=== PATIENT | male | born 1950 | race Caucasian/White ===

== ENCOUNTER 2018-06-21 02:07 | Inpatient (IN) | payer OTHER ==
[~2018-06-21] VITALS: Ht 172.7 cm; Wt 72.7 kg
[2018-06-21 04:04] LABS: Basophils # (auto) 0.1 uL; Basophils % (auto) 0.7 % (0.0-2.0); Eosinophils # (auto) 0.1 uL; Eosinophils % (auto) 1.6 % (0.0-7.0); Hematocrit 41.3 % (41.0-53.0); Hemoglobin 14.8 g/dL (13.5-17.5); Lymphocytes # (auto) 1.8 uL; Lymphocytes % (auto) 19.9 % (10.0-50.0); Mean Corpuscular Hemoglobin 33.9 pg (28.0-32.0); Mean Corpuscular Hgb Conc. 35.7 g/dL (32.0-36.0); Mean Corpuscular Volume 94.7 fL (80.0-100.0); Monocytes # (auto) 0.7 uL; Monocytes % (auto) 8.1 % (0.0-12.0); Neutrophils # (auto) 6.2 uL; Neutrophils % (auto) 69.7 % (37.0-80.0); Nucleated Red Blood Cells % 0.1 %; Platelet Count (auto) 219 10^3/uL (140-450); Red Blood Cells 4.36 10^6/uL (4.5-5.90); Red Cell Distribution Width 13.4 % (11.8-14.3); White Blood Cell 8.8 10^3/uL (4.4-10.8)
[2018-06-21 04:17] LABS: Urine Bacteria NONE SEEN /hpf (None Seen); Urine Blood TRACE /uL (Negative); Urine Specific Gravity 1.011 (1.001-1.035); Urine WBC 1 /hpf (0 - 3)
[2018-06-21 04:23] LABS: Albumin 3.3 g/dL (3.4-5.0); Anion Gap 9 (5-15); Blood Alcohol < 3.0 mg/dL (0-5); Blood Urea Nitrogen 19 mg/dL (7-18); Calcium 8.6 mg/dL (8.5-10.1); Carbon Dioxide 29 mmol/L (21-32); Chloride 92 mmol/L (98-107); Glucose 75 mg/dL (74-106); Potassium 3.6 mmol/L (3.5-5.1); Sodium 130 mmol/L (136-145)
[2018-06-21 04:29] LABS: Alanine Aminotransferase 31 U/L (16-61); Alkaline Phosphatase 133 U/L (45-117); Aspartate Aminotransferase 31 U/L (15-37); BUN/Creatinine Ratio 22.6; Bilirubin, Total 0.5 mg/dL (0.2-1.0); GFR African American 117 mL/min; GFR Non-African American 97 mL/min; Total Protein 7.1 g/dL (6.4-8.2)
[2018-06-21 04:35] LABS: Amphetamine Screen, Urine NEGATIVE (NEGATIVE); Barbiturate Scree,Urine NEGATIVE (NEGATIVE); Benzodiazephine Screen, Urine NEGATIVE (NEGATIVE); Cannabinoid Screen, Urine NEGATIVE (NEGATIVE); Cocaine Screen, Urine NEGATIVE (NEGATIVE); Opiate Scree,Urine NEGATIVE (NEGATIVE); Phencyclidine Screen, Urine NEGATIVE (NEGATIVE)
[2018-06-21] MEDS ORDERED: ONDANSETRON HCL 4 MG/2 ML VIAL IV PRN (08:30)
[2018-06-21] MEDS ORDERED: HYDROcodone-ACET 5/325MG TAB PO PRN (08:30)
[2018-06-21] MEDS ORDERED: ACETAMINOPHEN 500 MG TAB PO PRN (08:30)
[2018-06-21] MEDS ORDERED: MORPHINE SULFATE 4 MG/ML SYR/VIAL IV PRN (08:30)
[2018-06-21] MEDS ORDERED: LACTULOSE 20Gm/30ML SOLN PO PRN (08:30)
[2018-06-21] MEDS ORDERED: LORazepam 0.5 MG TAB PO PRN (08:30)
[2018-06-21] MEDS ORDERED: NITROGLYCERIN 0.4 MG SL TAB SL PRN (08:30)
[2018-06-21] MEDS: SODIUM CHLORIDE 0.9% 1,000 ML IV SCH ×2 (08:35→20:59)
[2018-06-21 10:00] VITALS: BP 158/63
[2018-06-21] MEDS: ENOXAPARIN SOD 40 MG/0.4 ML SYRINGE SC SCH (10:00)
[2018-06-21 10:09] LABS: Folate (Folic Acid) 16.91 ng/mL (5.38-24)
[2018-06-21] MEDS: PANTOPRAZOLE 40 MG TAB PO SCH (11:10)
[2018-06-21] MEDS: ASPirin 81 mg TAB PO SCH (11:13)
[2018-06-21 17:00] VITALS: BP 135/69
[2018-06-21] MEDS: MORPHINE SULFATE 4 MG/ML SYR/VIAL IV PRN (19:53)
[2018-06-21] MEDS: LORazepam 2MG/ML-1ML VIAL IV PRN (21:53)
[2018-06-21] MEDS: ATORVASTATIN 20 MG TAB PO SCH (21:54)
[2018-06-21 22:08] VITALS: BP 143/62
[2018-06-22 04:58] VITALS: BP 163/62
[2018-06-22 06:47] LABS: Albumin 2.7 g/dL (3.4-5.0); Potassium 3.9 mmol/L (3.5-5.1)
[2018-06-22 06:50] LABS: BUN/Creatinine Ratio 25.6; Bilirubin, Total 0.5 mg/dL (0.2-1.0); Total Protein 5.4 g/dL (6.4-8.2)
[2018-06-22] MEDS: SODIUM CHLORIDE 0.9% 1,000 ML IV SCH ×2 (07:45→21:02)
[2018-06-22 09:00] VITALS: BP 164/73
[2018-06-22] MEDS: ASPirin 81 mg TAB PO SCH (10:42)
[2018-06-22] MEDS: PANTOPRAZOLE 40 MG TAB PO SCH (10:42)
[2018-06-22] MEDS: LABETALOL HCL 5 MG/ML ML 20ML VIAL IV PRN ×2 (10:42→21:21)
[2018-06-22] MEDS: ENOXAPARIN SOD 40 MG/0.4 ML SYRINGE SC SCH (10:43)
[2018-06-22] MEDS: LORazepam 2MG/ML-1ML VIAL IV PRN (17:04)
[2018-06-22 17:57] VITALS: BP 112/73
[2018-06-22] MEDS: ATORVASTATIN 20 MG TAB PO SCH (20:57)
[2018-06-22] MEDS: DONEPEZIL HYDROCHLORIDE 5 MG TAB PO SCH (20:57)
[2018-06-22 21:00] VITALS: BP 179/63
[2018-06-22] MEDS: TEMAZEPAM 15 MG CAP PO PRN (21:01)
[2018-06-23] MEDS: LORazepam 2MG/ML-1ML VIAL IV PRN ×2 (00:49→17:31)
[2018-06-23] MEDS: ATORVASTATIN 20 MG TAB PO SCH ×2 (06:28→21:53)
[2018-06-23] MEDS: LABETALOL HCL 5 MG/ML ML 20ML VIAL IV PRN ×2 (06:53→22:16)
[2018-06-23 08:00] VITALS: BP 153/76
[2018-06-23 09:00] VITALS: BP 153/72
[2018-06-23] MEDS: SODIUM CHLORIDE 0.9% 1,000 ML IV SCH ×2 (10:29→22:18)
[2018-06-23] MEDS: ENOXAPARIN SOD 40 MG/0.4 ML SYRINGE SC SCH (11:21)
[2018-06-23] MEDS: ASPirin 81 mg TAB PO SCH (11:21)
[2018-06-23] MEDS: CLOPIDOGREL BISULFATE 75 MG TAB PO SCH (11:21)
[2018-06-23] MEDS: PANTOPRAZOLE 40 MG TAB PO SCH (11:21)
[2018-06-23] MEDS ORDERED: DEXTROSE (50%) 50ML SYRG IV PRN (12:00)
[2018-06-23] MEDS: ACCU-CHEK COMFORT CURVE STRIP VI SCH ×3 (12:48→22:17)
[2018-06-23] MEDS: InsuLIN REG 1unit/0.01ml Soln (100units/ml) SC SCH ×3 (12:48→22:18)
[2018-06-23 13:00] VITALS: BP 97/60
[2018-06-23 17:00] VITALS: BP 146/74
[2018-06-23] MEDS: TEMAZEPAM 15 MG CAP PO PRN (21:53)
[2018-06-23] MEDS: DONEPEZIL HYDROCHLORIDE 5 MG TAB PO SCH (21:54)
[2018-06-23 22:00] VITALS: BP 193/81
[2018-06-24] VITALS (8 sets, daily range): BP systolic 134–162; BP diastolic 63–82
[2018-06-24] MEDS: InsuLIN REG 1unit/0.01ml Soln (100units/ml) SC SCH ×4 (05:45→22:00)
[2018-06-24] MEDS: ACCU-CHEK COMFORT CURVE STRIP VI SCH ×4 (05:45→22:00)
[2018-06-24] MEDS: LABETALOL HCL 5 MG/ML ML 20ML VIAL IV PRN (06:05)
[2018-06-24] MEDS: HALOPERIDOL LACTATE 5 MG/ML INJ VIAL IM PRN ×2 (08:16→18:05)
[2018-06-24 10:08] LABS: BUN/Creatinine Ratio 23.6; Calcium 8.4 mg/dL (8.5-10.1); Potassium 4.5 mmol/L (3.5-5.1)
[2018-06-24] MEDS: SODIUM CHLORIDE 0.9% 1,000 ML IV SCH ×2 (11:29→23:59)
[2018-06-24] MEDS: PANTOPRAZOLE 40 MG TAB PO SCH (11:36)
[2018-06-24] MEDS: ENOXAPARIN SOD 40 MG/0.4 ML SYRINGE SC SCH (11:37)
[2018-06-24] MEDS: ASPirin 81 mg TAB PO SCH (11:37)
[2018-06-24] MEDS: CLOPIDOGREL BISULFATE 75 MG TAB PO SCH (11:37)
[2018-06-24 13:48] LABS: Basophils # (auto) 0.1 uL; Basophils % (auto) 0.9 % (0.0-2.0); Eosinophils # (auto) 0.1 uL; Eosinophils % (auto) 1.6 % (0.0-7.0); Lymphocytes # (auto) 0.9 uL; Monocytes # (auto) 0.5 uL
[2018-06-24 13:50] LABS: Hematocrit 36.9 % (41.0-53.0); Hemoglobin 12.9 g/dL (13.5-17.5); Lymphocytes % (auto) 12.9 % (10.0-50.0); Mean Corpuscular Hemoglobin 33.8 pg (28.0-32.0); Mean Corpuscular Volume 96.5 fL (80.0-100.0); Monocytes % (auto) 7.1 % (0.0-12.0); Neutrophils # (auto) 5.1 uL; Neutrophils % (auto) 77.5 % (37.0-80.0); Platelet Count (auto) 201 10^3/uL (140-450); Red Blood Cells 3.82 10^6/uL (4.5-5.90); Red Cell Distribution Width 13.4 % (11.8-14.3); White Blood Cell 6.6 10^3/uL (4.4-10.8)
[2018-06-24] MEDS: LORazepam 2MG/ML-1ML VIAL IV PRN ×2 (13:59→20:05)
[2018-06-24] MEDS ORDERED: METOPROLOL TARTRATE 25 MG TAB PO ONE (17:00)
[2018-06-24] MEDS: MORPHINE SULFATE 4 MG/ML SYR/VIAL IV PRN (21:09)
[2018-06-24] MEDS ORDERED: ATORVASTATIN 20 MG TAB PO SCH (22:00)
[2018-06-24] MEDS: DONEPEZIL HYDROCHLORIDE 5 MG TAB PO SCH (22:51)
[2018-06-25] MEDS: HALOPERIDOL LACTATE 5 MG/ML INJ VIAL IM PRN (02:18)
[2018-06-25 05:00] VITALS: BP 138/57
[2018-06-25] MEDS: LORazepam 2MG/ML-1ML VIAL IV PRN (06:31)
[2018-06-25] MEDS: ACCU-CHEK COMFORT CURVE STRIP VI SCH ×2 (06:31→12:45)
[2018-06-25] MEDS: InsuLIN REG 1unit/0.01ml Soln (100units/ml) SC SCH ×2 (06:31→12:46)
[2018-06-25 09:00] VITALS: BP 126/55
[2018-06-25] MEDS ORDERED: METOPROLOL TARTRATE 25 MG TAB PO SCH (10:00)
[2018-06-25] MEDS: ENOXAPARIN SOD 40 MG/0.4 ML SYRINGE SC SCH (10:00)
[2018-06-25] MEDS: PANTOPRAZOLE 40 MG TAB PO SCH (10:06)
[2018-06-25] MEDS: ASPirin 81 mg TAB PO SCH (10:06)
[2018-06-25] MEDS: CLOPIDOGREL BISULFATE 75 MG TAB PO SCH (10:06)
[2018-06-25] MEDS: SODIUM CHLORIDE 0.9% 1,000 ML IV SCH (12:29)
[2018-06-25 13:00] VITALS: BP 114/33
[2018-06-25 15:34] VITALS: BP 126/55
== END 2018-06-25 16:57 | DRG 917 ==
LOC: EDBD 02:07 → EDUNIT# 02:07 → ER 02:09 → TELE-EAST 02:10
PROVIDERS: ADMIT Internal Medicine; ATTEND Internal Medicine
PROC: HZ35ZZZ Individual Counseling for Substance Abuse Treatment, Vocational (ICD-10-PCS; principal; 2018-06-21)
DX: T51.91XA Toxic effect of unspecified alcohol, accidental (unintentional), initial encounter (principal); G92 Toxic encephalopathy; S42.301A Unspecified fracture of shaft of humerus, right arm, initial encounter for closed fracture; E87.1 Hypo-osmolality and hyponatremia; G81.91 Hemiplegia, unspecified affecting right dominant side; G30.9 Alzheimer's disease, unspecified; F02.80 Dementia in other diseases classified elsewhere, unspecified severity, without behavioral disturbance, psychotic disturbance, mood disturbance, and anxiety; E11.42 Type 2 diabetes mellitus with diabetic polyneuropathy; I65.29 Occlusion and stenosis of unspecified carotid artery; E11.51 Type 2 diabetes mellitus with diabetic peripheral angiopathy without gangrene; F17.200 Nicotine dependence, unspecified, uncomplicated; X58.XXXA Exposure to other specified factors, initial encounter; Y93.89 Activity, other specified; Y92.89 Other specified places as the place of occurrence of the external cause; Y99.8 Other external cause status; S42.001A Fracture of unspecified part of right clavicle, initial encounter for closed fracture; Z79.899 Other long term (current) drug therapy; Z81.8 Family history of other mental and behavioral disorders; Z83.3 Family history of diabetes mellitus; Z89.421 Acquired absence of other right toe(s); Z95.820 Peripheral vascular angioplasty status with implants and grafts; I67.2 Cerebral atherosclerosis
CPT/HCPCS: 36415; 70450; 71045; 73030; 80048; 80053; 80307; 80320; 81001; 82550; 82607; 82746; 82962; 84443; 84484; 85025; 85652; 93005; 93306; 93886; 95819; 96360; 97110; 97116; 97163; 97530; G0378; J1815

== ENCOUNTER 2022-04-25 20:21 | Inpatient (IN) | payer OTHER ==
[~2022-04-25] VITALS: Ht 177.8 cm; Wt 59.9 kg
[2022-04-25] MEDS ORDERED: methylPREDNISolone SOD SUCC 125 MG/2 ML VL ONE (20:34)
[2022-04-25] MEDS ORDERED: IPRATROPIUM BROM 0.5 MG/2.5ML INH SOL NEB ONE (20:45)
[2022-04-25] MEDS ORDERED: methylPREDNISolone SOD SUCC 125 MG/2 ML VL IV ONE (20:45)
[2022-04-25] MEDS ORDERED: SODIUM CHLORIDE 0.9% 1,000 ML IV ONE ×2 (20:45)
[2022-04-25] MEDS ORDERED: PIPERACILLIN-TAZOB 3.375GM 100 ML IV ONE (20:45)
[2022-04-25] MEDS ORDERED: ACETAMINOPHEN 325 MG RECT SUPP PR ONE (20:45)
[2022-04-25] MEDS ORDERED: ALBUTEROL SULF 2.5 MG/0.5ML(0.5%) NEB SOLN NEB ONE (20:45)
[2022-04-25] MEDS ORDERED: ACETAMINOPHEN 650 MG RECT SUPP PR ONE (20:45)
[2022-04-25] MEDS ORDERED: ACETAMINOPHEN 120 MG RECT SUPP PR ONE (20:54)
[2022-04-25 21:21] LABS: Basophils # (auto) 0.1 10 ^3/uL (0-0.2); Basophils % (auto) 0.7 % (0.0-2.0); Eosinophils # (auto) 0 10 ^3/uL (0-0.8); Hematocrit 45.6 % (41.0-53.0); Hemoglobin 15.1 g/dL (13.5-17.5); Lymphocytes # (auto) 1.8 10 ^3/uL (0.4-5.4); Lymphocytes % (auto) 11.4 % (10.0-50.0); Mean Corpuscular Hemoglobin 29.7 pg (28.0-32.0); Mean Corpuscular Hgb Conc. 33.1 g/dL (32.0-36.0); Mean Corpuscular Volume 89.8 fL (80.0-100.0); Monocytes # (auto) 0.8 10 ^3/uL (0-1.3); Monocytes % (auto) 4.9 % (0.0-12.0); Neutrophils # (auto) 13.2 10 ^3/uL (1.6-8.6); Nucleated Red Blood Cells % 0.1 %; Red Blood Cells 5.08 10^6/uL (4.5-5.90); Red Cell Distribution Width 14.7 % (11.8-14.3); White Blood Cell 15.9 10^3/uL (4.4-10.8)
[2022-04-25] MEDS ORDERED: ACETAMINOPHEN IV 1000 MG/100ML (10MG/ML) IV PRN (21:30)
[2022-04-25 22:01] LABS: Lactic Acid w/Reflex 2.2 mmol/L (0.4-2.0)
[2022-04-25 23:03] LABS: Bilirubin, Total 0.4 mg/dL (0.2-1.0); Total Protein 6.9 g/dL (6.4-8.2)
[2022-04-25 23:11] LABS: Albumin 2.5 g/dL (3.4-5.0); BUN/Creatinine Ratio 34.5; Calcium 8.3 mg/dL (8.5-10.1); Magnesium 2.5 mg/dL (1.6-2.6); Potassium 3.8 mmol/L (3.5-5.1)
[2022-04-25] MEDS ORDERED: NITROGLYCERIN 0.4 MG SL TAB SL PRN (23:45)
[2022-04-25] MEDS ORDERED: ALBUTEROL SULF 2.5 MG/0.5ML(0.5%) NEB SOLN NEB PRN (23:45)
[2022-04-25] MEDS ORDERED: DEXTROSE (50%) 50ML SYRG IV PRN (23:45)
[2022-04-25] MEDS ORDERED: ACETAMINOPHEN 325 MG TAB PO PRN (23:45)
[2022-04-25] MEDS ORDERED: MORPHINE SULFATE INJ 2 MG/ml SYRG IV PRN (23:45)
[2022-04-25] MEDS ORDERED: ONDANSETRON HCL 4 MG/2 ML VIAL IV PRN (23:45)
[2022-04-26] VITALS (7 sets, daily range): BP systolic 105–130; BP diastolic 43–68
[2022-04-26 00:26] LABS: Urine Bacteria FEW /hpf (None Seen); Urine Blood 1+ /uL (Negative); Urine Hyaline Cast MOD /lpf (0 - 2); Urine Mucus FEW (None Seen); Urine Specific Gravity 1.027 (1.001-1.035); Urine WBC 13 /hpf (0 - 3)
[2022-04-26] MEDS: SODIUM CHLORIDE 0.9% 1,000 ML IV SCH ×3 (01:54→22:43)
[2022-04-26 03:48] LABS: Basophils # (auto) 0 10 ^3/uL (0-0.2); Basophils % (auto) 0.3 % (0.0-2.0); Eosinophils # (auto) 0 10 ^3/uL (0-0.8); Lymphocytes # (auto) 1.1 10 ^3/uL (0.4-5.4); Lymphocytes % (auto) 6.8 % (10.0-50.0); Mean Corpuscular Hemoglobin 30.4 pg (28.0-32.0); Mean Corpuscular Hgb Conc. 33.3 g/dL (32.0-36.0); Mean Corpuscular Volume 91.3 fL (80.0-100.0); Monocytes # (auto) 0.4 10 ^3/uL (0-1.3); Monocytes % (auto) 2.5 % (0.0-12.0); Neutrophils # (auto) 14.3 10 ^3/uL (1.6-8.6); Neutrophils % (auto) 90.4 % (37.0-80.0); Red Cell Distribution Width 14.5 % (11.8-14.3); White Blood Cell 15.8 10^3/uL (4.4-10.8)
[2022-04-26 04:15] LABS: Potassium 3.6 mmol/L (3.5-5.1)
[2022-04-26 04:22] LABS: Albumin 2.5 g/dL (3.4-5.0); BUN/Creatinine Ratio 37.1; Bilirubin, Total 0.4 mg/dL (0.2-1.0); Calcium 8.2 mg/dL (8.5-10.1); Total Protein 7.4 g/dL (6.4-8.2)
[2022-04-26] MEDS: ACCU-CHEK COMFORT CURVE STRIP VI SCH ×4 (05:35→23:16)
[2022-04-26] MEDS: InsuLIN REG 1unit/0.01ml Soln (100units/ml) SC SCH ×4 (05:46→23:06)
[2022-04-26] MEDS ORDERED: PANTOPRAZOLE 40 MG TAB PO SCH (10:00)
[2022-04-26] MEDS: cefTRIAXone 1GM/50ML D5W 50 ML IV SCH (10:21)
[2022-04-26] MEDS: ENOXAPARIN SOD 30 MG/0.3 ML SYRINGE SC SCH (10:21)
[2022-04-26] MEDS ORDERED: ASPI1TAB91 PO (15:19)
[2022-04-26] MEDS ORDERED: INS7030I SC (15:19)
[2022-04-26] MEDS ORDERED: ATOR20TA50 PO (15:19)
[2022-04-26] MEDS ORDERED: AMLO-496 PO (15:19)
[2022-04-26] MEDS ORDERED: AMOX-277 PO (17:13)
[2022-04-26] MEDS: ATORVASTATIN 20 MG TAB PO SCH (22:42)
[2022-04-26 22:54] LABS: Cholesterol 94 mg/dL (< 200); Triglycerides 100 mg/dL (< 150)
[2022-04-26 22:56] LABS: HDL Cholesterol 25 mg/dL (40-59); LDL Cholesterol 61 mg/dL (< 100)
[2022-04-27] VITALS (10 sets, daily range): BP systolic 104–134; BP diastolic 46–71
[2022-04-27] MEDS: ACCU-CHEK COMFORT CURVE STRIP VI SCH ×4 (06:20→23:06)
[2022-04-27] MEDS: InsuLIN REG 1unit/0.01ml Soln (100units/ml) SC SCH ×4 (06:26→23:15)
[2022-04-27] MEDS: INSULIN LANTUS (GLARGINE) 1 /0.01ml (100units/ml) SC SCH (10:00)
[2022-04-27] MEDS: ASPirin 81 mg TAB PO SCH (10:00)
[2022-04-27] MEDS: ENOXAPARIN SOD 30 MG/0.3 ML SYRINGE SC SCH (10:11)
[2022-04-27] MEDS: cefTRIAXone 1GM/50ML D5W 50 ML IV SCH (10:11)
[2022-04-27 10:33] LABS: BUN/Creatinine Ratio 79.7; Calcium 8.2 mg/dL (8.5-10.1); Potassium 3.7 mmol/L (3.5-5.1)
[2022-04-27] MEDS: PIPERACILLIN-TAZOB 3.375GM 100 ML IV SCH ×3 (16:18→23:16)
[2022-04-27] MEDS: SOD CHL 0.45% 1,000 ML IV SCH (16:18)
[2022-04-27] MEDS: DONEPEZIL HYDROCHLORIDE 5 MG TAB PO SCH (21:22)
[2022-04-27] MEDS: ATORVASTATIN 20 MG TAB PO SCH (21:22)
[2022-04-28] VITALS (30 sets, daily range): BP systolic 91–130; BP diastolic 41–65
[2022-04-28] MEDS ORDERED: FUROSEMIDE 40 MG/4 ML VIAL IV ONE (01:30)
[2022-04-28] MEDS: PIPERACILLIN-TAZOB 3.375GM 100 ML IV SCH ×3 (05:35→18:17)
[2022-04-28] MEDS: SOD CHL 0.45% 1,000 ML IV SCH ×2 (05:35→12:11)
[2022-04-28] MEDS: ACCU-CHEK COMFORT CURVE STRIP VI SCH ×5 (05:35→18:00)
[2022-04-28] MEDS: InsuLIN REG 1unit/0.01ml Soln (100units/ml) SC SCH ×3 (05:40→16:24)
[2022-04-28] MEDS: LEVALBUTEROL HCL 1.25 MG/3 ML NEB NEB SCH ×3 (07:09→18:59)
[2022-04-28 08:43] LABS: BUN/Creatinine Ratio 63.5; Calcium 8.1 mg/dL (8.5-10.1); Potassium 3.3 mmol/L (3.5-5.1)
[2022-04-28] MEDS: ASPirin 81 mg TAB PO SCH (10:00)
[2022-04-28] MEDS: INSULIN LANTUS (GLARGINE) 1 /0.01ml (100units/ml) SC SCH (10:00)
[2022-04-28] MEDS: ENOXAPARIN SOD 30 MG/0.3 ML SYRINGE SC SCH (10:43)
[2022-04-28] MEDS ORDERED: InsuLIN REG 1unit/0.01ml Soln (100units/ml) SC SCH (16:00)
[2022-04-28] MEDS ORDERED: POTASSIUM CHL 20MEQ/100ML 100 ML IV ONE (16:15)
[2022-04-28] MEDS: DONEPEZIL HYDROCHLORIDE 5 MG TAB PO SCH (22:00)
[2022-04-28] MEDS: ATORVASTATIN 20 MG TAB PO SCH (22:00)
[2022-04-29] VITALS (25 sets, daily range): BP systolic 99–127; BP diastolic 39–79
[2022-04-29] MEDS: LEVALBUTEROL HCL 1.25 MG/3 ML NEB NEB SCH ×4 (00:12→18:11)
[2022-04-29] MEDS: PIPERACILLIN-TAZOB 3.375GM 100 ML IV SCH ×4 (01:16→21:06)
[2022-04-29] MEDS: SOD CHL 0.45% 1,000 ML IV SCH ×2 (01:17→08:11)
[2022-04-29] MEDS: InsuLIN REG 1unit/0.01ml Soln (100units/ml) SC SCH ×6 (01:20→20:00)
[2022-04-29] MEDS ORDERED: ACCU-CHEK COMFORT CURVE STRIP VI SCH (06:00)
[2022-04-29] MEDS: ACCU-CHEK COMFORT CURVE STRIP VI SCH ×4 (08:11→18:12)
[2022-04-29] MEDS ORDERED: GLYCOPYRROLATE 0.2 MG/ML 1ML VIAL IV ONE (09:00)
[2022-04-29] MEDS: ASPirin 81 mg TAB PO SCH (09:40)
[2022-04-29] MEDS: ENOXAPARIN SOD 40 MG/0.4 ML SYRINGE SC SCH (09:41)
[2022-04-29] MEDS: INSULIN LANTUS (GLARGINE) 1 /0.01ml (100units/ml) SC SCH (10:00)
[2022-04-29 11:56] LABS: Hematocrit 40.1 % (41.0-53.0); Hemoglobin 13.5 g/dL (13.5-17.5); Mean Corpuscular Hemoglobin 29.7 pg (28.0-32.0); Mean Corpuscular Hgb Conc. 33.5 g/dL (32.0-36.0); Mean Corpuscular Volume 88.5 fL (80.0-100.0); Red Blood Cells 4.53 10^6/uL (4.5-5.90); Red Cell Distribution Width 14.2 % (11.8-14.3); White Blood Cell 27.1 10^3/uL (4.4-10.8)
[2022-04-29 11:59] LABS: Band Neutrophils % (manual) 0; Basophils % (manual) 0 (0.0-2.0); Blast Cells 0; Eosinophils % (manual) 0 (0-7); Metamyelocytes % 0; Myelocytes % 0; Promyelocytes % 0; Reactive Lymphocytes 0
[2022-04-29 12:04] LABS: BUN/Creatinine Ratio 60.9; Potassium 3.1 mmol/L (3.5-5.1)
[2022-04-29 14:24] LABS: Lymphocytes % (manual) 1 (10.0-50.0); Monocytes % (manual) 5 (0-12)
[2022-04-29] MEDS ORDERED: VANCOMYCIN PER PHARMACY 0 MG IV SCH (17:00)
[2022-04-29] MEDS: POTASSIUM CHL 20MEQ/100ML 100 ML IV SCH (17:43)
[2022-04-29] MEDS: ATORVASTATIN 20 MG TAB PO SCH (22:00)
[2022-04-29] MEDS: DONEPEZIL HYDROCHLORIDE 5 MG TAB PO SCH (22:00)
[2022-04-29] MEDS: VANCOMYCIN 1GM/250ML 250 ML IV SCH (22:39)
[2022-04-30] VITALS (26 sets, daily range): BP systolic 99–128; BP diastolic 30–79
[2022-04-30] MEDS: LEVALBUTEROL HCL 1.25 MG/3 ML NEB NEB SCH ×4 (00:21→19:02)
[2022-04-30] MEDS: PIPERACILLIN-TAZOB 3.375GM 100 ML IV SCH ×5 (00:36→23:51)
[2022-04-30] MEDS: ACCU-CHEK COMFORT CURVE STRIP VI SCH ×7 (00:37→23:51)
[2022-04-30] MEDS ORDERED: POTASSIUM CHL 20MEQ/100ML 100 ML IV ONE (00:47)
[2022-04-30] MEDS: POTASSIUM CHL 20MEQ/100ML 100 ML IV SCH (00:54)
[2022-04-30] MEDS: InsuLIN REG 1unit/0.01ml Soln (100units/ml) SC SCH ×7 (04:00→23:52)
[2022-04-30] MEDS: SOD CHL 0.45% 1,000 ML IV SCH ×2 (05:25→05:28)
[2022-04-30] MEDS: VANCOMYCIN 1GM/250ML 250 ML IV SCH ×2 (08:19→21:37)
[2022-04-30] MEDS: INSULIN LANTUS (GLARGINE) 1 /0.01ml (100units/ml) SC SCH (10:00)
[2022-04-30] MEDS: ENOXAPARIN SOD 40 MG/0.4 ML SYRINGE SC SCH (10:00)
[2022-04-30] MEDS: ASPirin 81 mg TAB PO SCH (10:00)
[2022-04-30 12:04] LABS: Basophils # (auto) 0.1 10 ^3/uL (0-0.2); Basophils % (auto) 0.4 % (0.0-2.0); Eosinophils # (auto) 0 10 ^3/uL (0-0.8); Eosinophils % (auto) 0.2 % (0.0-7.0); Hematocrit 37.1 % (41.0-53.0); Hemoglobin 12.1 g/dL (13.5-17.5); Lymphocytes # (auto) 1.1 10 ^3/uL (0.4-5.4); Lymphocytes % (auto) 5.5 % (10.0-50.0); Mean Corpuscular Hemoglobin 29.2 pg (28.0-32.0); Mean Corpuscular Hgb Conc. 32.5 g/dL (32.0-36.0); Mean Corpuscular Volume 89.9 fL (80.0-100.0); Monocytes # (auto) 0.6 10 ^3/uL (0-1.3); Neutrophils # (auto) 17.8 10 ^3/uL (1.6-8.6); Neutrophils % (auto) 90.9 % (37.0-80.0); Red Blood Cells 4.13 10^6/uL (4.5-5.90); Red Cell Distribution Width 14.5 % (11.8-14.3); White Blood Cell 19.6 10^3/uL (4.4-10.8)
[2022-04-30] MEDS: POTASSIUM CHLORIDE 20 MEQ in D5W 5% 1,000 ML IV SCH ×2 (12:05→23:20)
[2022-04-30 12:20] LABS: BUN/Creatinine Ratio 53.7; Calcium 7.4 mg/dL (8.5-10.1); Potassium 3.4 mmol/L (3.5-5.1)
[2022-04-30 12:25] LABS: Phosphorus 2.1 mg/dL (2.5-4.90)
[2022-04-30] MEDS ORDERED: POTASSIUM CHL 20MEQ/100ML 100 ML IV SCH (17:30)
[2022-04-30] MEDS: DONEPEZIL HYDROCHLORIDE 5 MG TAB PO SCH (21:38)
[2022-04-30] MEDS: ATORVASTATIN 20 MG TAB PO SCH (21:38)
[2022-05-01] MEDS: LEVALBUTEROL HCL 1.25 MG/3 ML NEB NEB SCH ×4 (00:19→18:45)
[2022-05-01] MEDS: ACCU-CHEK COMFORT CURVE STRIP VI SCH ×5 (03:45→21:10)
[2022-05-01] MEDS: InsuLIN REG 1unit/0.01ml Soln (100units/ml) SC SCH ×5 (03:46→20:39)
[2022-05-01] MEDS: POTASSIUM CHLORIDE 20 MEQ in D5W 5% 1,000 ML IV SCH ×2 (03:49→18:34)
[2022-05-01] MEDS: PIPERACILLIN-TAZOB 3.375GM 100 ML IV SCH ×3 (06:05→18:34)
[2022-05-01 06:22] LABS: Mean Corpuscular Hemoglobin 30.5 pg (28.0-32.0); Mean Corpuscular Hgb Conc. 33.4 g/dL (32.0-36.0); Mean Corpuscular Volume 91.4 fL (80.0-100.0); Red Blood Cells 3.61 10^6/uL (4.5-5.90); Red Cell Distribution Width 14.8 % (11.8-14.3); White Blood Cell 14.2 10^3/uL (4.4-10.8)
[2022-05-01 06:29] LABS: Potassium 3.4 mmol/L (3.5-5.1)
[2022-05-01 06:43] LABS: Albumin 1.7 g/dL (3.4-5.0); BUN/Creatinine Ratio 40.4; Bilirubin, Total 0.7 mg/dL (0.2-1.0); Calcium 7.2 mg/dL (8.5-10.1); Total Protein 4.8 g/dL (6.4-8.2)
[2022-05-01 08:18] LABS: Basophils % (manual) 0 (0.0-2.0); Blast Cells 0; Metamyelocytes % 0; Myelocytes % 0; Promyelocytes % 0; Reactive Lymphocytes 0
[2022-05-01 09:00] VITALS: BP 116/57
[2022-05-01] MEDS: ASPirin 81 mg TAB PO SCH (10:00)
[2022-05-01] MEDS: INSULIN LANTUS (GLARGINE) 1 /0.01ml (100units/ml) SC SCH (10:00)
[2022-05-01] MEDS: ENOXAPARIN SOD 40 MG/0.4 ML SYRINGE SC SCH (10:52)
[2022-05-01 12:51] VITALS: BP 118/54
[2022-05-01 13:00] VITALS: BP 117/34
[2022-05-01] MEDS ORDERED: LEVO500T31 PO (13:52)
[2022-05-01 16:10] LABS: Band Neutrophils % (manual) 15; Eosinophils % (manual) 1 (0-7); Lymphocytes % (manual) 9 (10.0-50.0); Monocytes % (manual) 2 (0-12)
[2022-05-01 17:00] VITALS: BP 97/39
[2022-05-01] MEDS: DONEPEZIL HYDROCHLORIDE 5 MG TAB PO SCH (21:09)
[2022-05-01] MEDS: ATORVASTATIN 20 MG TAB PO SCH (21:09)
[2022-05-01 22:32] VITALS: BP 141/70
[2022-05-02] MEDS: PIPERACILLIN-TAZOB 3.375GM 100 ML IV SCH ×4 (00:17→18:00)
[2022-05-02] MEDS: InsuLIN REG 1unit/0.01ml Soln (100units/ml) SC SCH ×6 (00:18→18:30)
[2022-05-02] MEDS: LEVALBUTEROL HCL 1.25 MG/3 ML NEB NEB SCH ×4 (00:37→19:17)
[2022-05-02] MEDS: ACCU-CHEK COMFORT CURVE STRIP VI SCH ×5 (01:38→18:00)
[2022-05-02] MEDS: POTASSIUM CHLORIDE 20 MEQ in D5W 5% 1,000 ML IV SCH ×3 (02:09→19:21)
[2022-05-02 05:08] VITALS: BP 98/70
[2022-05-02 09:00] VITALS: BP 123/55
[2022-05-02] MEDS ORDERED: POTASSIUM PHOSPHATE 22 MEQ in SODIUM CHL 0.9% 100 ML IV ONE (10:00)
[2022-05-02] MEDS: INSULIN LANTUS (GLARGINE) 1 /0.01ml (100units/ml) SC SCH (10:00)
[2022-05-02] MEDS: ASPirin 81 mg TAB PO SCH (10:00)
[2022-05-02] MEDS: ENOXAPARIN SOD 40 MG/0.4 ML SYRINGE SC SCH (11:22)
[2022-05-02] MEDS: ALBUMIN 25% 100 ML IV SCH ×2 (12:11→17:30)
[2022-05-02 13:00] VITALS: BP 132/55
[2022-05-02 16:32] VITALS: BP 123/55
[2022-05-02 16:46] VITALS: BP 123/65
[2022-05-02 17:49] VITALS: BP 130/46
== END 2022-05-02 20:10 | disposition hospice, home (50) | DRG 871 ==
LOC: EDBD 20:21 → EDUNIT# 20:21 → ER 20:25 → TELE 23:43 → TELE-WESTW 04-26 04:35 → ICU WEST 04-28 02:47 → TELE-EAST 04-30 23:11
PROVIDERS: ADMIT Nurse Practitioner; ATTEND Internal Medicine
PROC: 5A0945A Assistance with Respiratory Ventilation, 24-96 Consecutive Hours, High Flow/Velocity Cannula (ICD-10-PCS; principal; 2022-04-27)
DX: A41.9 Sepsis, unspecified organism (principal); E43 Unspecified severe protein-calorie malnutrition; J69.0 Pneumonitis due to inhalation of food and vomit; J96.01 Acute respiratory failure with hypoxia; G92.8 Other toxic encephalopathy; I63.9 Cerebral infarction, unspecified; S42.301A Unspecified fracture of shaft of humerus, right arm, initial encounter for closed fracture; R64 Cachexia; N39.0 Urinary tract infection, site not specified; N17.9 Acute kidney failure, unspecified; E87.1 Hypo-osmolality and hyponatremia; E87.0 Hyperosmolality and hypernatremia; Z68.1 Body mass index [BMI] 19.9 or less, adult; I69.354 Hemiplegia and hemiparesis following cerebral infarction affecting left non-dominant side; Z66 Do not resuscitate; Z20.822 Contact with and (suspected) exposure to COVID-19; F02.80 Dementia in other diseases classified elsewhere, unspecified severity, without behavioral disturbance, psychotic disturbance, mood disturbance, and anxiety; N18.9 Chronic kidney disease, unspecified; E11.42 Type 2 diabetes mellitus with diabetic polyneuropathy; G30.9 Alzheimer's disease, unspecified; Z79.899 Other long term (current) drug therapy; Z79.82 Long term (current) use of aspirin; E11.22 Type 2 diabetes mellitus with diabetic chronic kidney disease; E11.51 Type 2 diabetes mellitus with diabetic peripheral angiopathy without gangrene; F17.200 Nicotine dependence, unspecified, uncomplicated; I12.9 Hypertensive chronic kidney disease with stage 1 through stage 4 chronic kidney disease, or unspecified chronic kidney disease; J43.9 Emphysema, unspecified; L89.92 Pressure ulcer of unspecified site, stage 2; Z51.5 Encounter for palliative care; Z74.01 Bed confinement status; Z81.8 Family history of other mental and behavioral disorders; Z83.3 Family history of diabetes mellitus; Z95.820 Peripheral vascular angioplasty status with implants and grafts; Z88.8 Allergy status to other drugs, medicaments and biological substances; Z79.4 Long term (current) use of insulin
CPT/HCPCS: 36415; 36600; 70450; 71045; 71250; 72125; 73060; 80048; 80053; 80061; 80202; 81001; 82570; 82805; 82962; 83036; 83605; 83735; 84100; 84484; 85007; 85025; 85027; 87040; 87081; 92507; 92610; 93005; 93306; 94640; 94762; 95819; 96361; 96365; 96375; 99291; G0378; J0131; J0696; J1815; J2543; J3480; P9047

== ENCOUNTER 2022-05-09 12:14 | Inpatient (IN) | payer OTHER ==
[~2022-05-09] VITALS: Ht 170.2 cm; Wt 57.4 kg
[~2022-05-09 12:14] MED LIST: AMLO-496 PO; ASPI1TAB91 PO; ATOR20TA50 PO; INS7030I SC; LEVO500T31 PO
[2022-05-09] MEDS ORDERED: ACETAMINOPHEN 650 MG RECT SUPP PR ONE (12:45)
[2022-05-09] MEDS ORDERED: VANCOMYCIN 1GM/250ML 250 ML IV ONE (12:45)
[2022-05-09] MEDS ORDERED: SODIUM CHLORIDE 0.9% 1,000 ML IV ONE ×2 (12:45→14:45)
[2022-05-09] MEDS ORDERED: PIPERACILLIN-TAZOB 3.375GM 100 ML IV ONE (12:45)
[2022-05-09 13:36] LABS: Basophils # (auto) 0 10 ^3/uL (0-0.2); Basophils % (auto) 0.2 % (0.0-2.0); Eosinophils # (auto) 0 10 ^3/uL (0-0.8); Hematocrit 38.9 % (41.0-53.0); Hemoglobin 13.2 g/dL (13.5-17.5); Lymphocytes # (auto) 0.8 10 ^3/uL (0.4-5.4); Mean Corpuscular Hemoglobin 29.7 pg (28.0-32.0); Mean Corpuscular Hgb Conc. 33.9 g/dL (32.0-36.0); Mean Corpuscular Volume 87.6 fL (80.0-100.0); Monocytes # (auto) 0.5 10 ^3/uL (0-1.3); Monocytes % (auto) 2.5 % (0.0-12.0); Neutrophils # (auto) 17.9 10 ^3/uL (1.6-8.6); Neutrophils % (auto) 93.3 % (37.0-80.0); Nucleated Red Blood Cells % 0.1 %; Red Blood Cells 4.44 10^6/uL (4.5-5.90); Red Cell Distribution Width 14.7 % (11.8-14.3); White Blood Cell 19.3 10^3/uL (4.4-10.8)
[2022-05-09 13:53] LABS: Urine Bacteria FEW /hpf (None Seen); Urine Blood 2+ /uL (Negative); Urine Hyaline Cast MOD /lpf (0 - 2); Urine Mucus FEW (None Seen); Urine Specific Gravity 1.021 (1.001-1.035); Urine WBC 138 /hpf (0 - 3)
[2022-05-09 13:59] LABS: Lactic Acid w/Reflex 2.6 mmol/L (0.4-2.0)
[2022-05-09 14:13] LABS: Albumin 2.7 g/dL (3.4-5.0); Calcium 8.2 mg/dL (8.5-10.1)
[2022-05-09 14:16] LABS: Bilirubin, Total 0.6 mg/dL (0.2-1.0); Total Protein 7.9 g/dL (6.4-8.2)
[2022-05-09 14:34] LABS: Potassium 5.6 mmol/L (3.5-5.1)
[2022-05-09 14:35] LABS: BUN/Creatinine Ratio 33.1
[2022-05-09] MEDS ORDERED: DEXTROSE (50%) 50ML SYRG IV ONE (14:45)
[2022-05-09] MEDS: SODIUM CHLORIDE 0.9% 1,000 ML IV SCH (14:45)
[2022-05-09] MEDS ORDERED: InsuLIN REG 1unit/0.01ml Soln (100units/ml) IV ONE ×2 (14:45)
[2022-05-09] MEDS ORDERED: SODIUM BICARBONATE 8.4% INJ 50ML SYRINGE IV ONE (14:45)
[2022-05-09] MEDS ORDERED: ALBUTEROL SULF 2.5 MG/0.5ML(0.5%) NEB SOLN NEB ONE (14:45)
[2022-05-09] MEDS ORDERED: ALBUTEROL SULF 2.5 MG/0.5ML(0.5%) NEB SOLN ONE (14:58)
[2022-05-09] MEDS ORDERED: NITROGLYCERIN 0.4 MG SL TAB SL PRN (15:00)
[2022-05-09] MEDS ORDERED: MORPHINE SULFATE INJ 2 MG/ml SYRG IV PRN ×2 (15:00)
[2022-05-09] MEDS ORDERED: DEXTROSE (50%) 50ML SYRG IV PRN (15:15)
[2022-05-09] MEDS: PIPERACILLIN-TAZOB 3.375GM 100 ML IV SCH (18:00)
[2022-05-09] MEDS: InsuLIN REG 1unit/0.01ml Soln (100units/ml) SC SCH (18:10)
[2022-05-09] MEDS: ACCU-CHEK COMFORT CURVE STRIP VI SCH (18:12)
[2022-05-09 18:56] LABS: BUN/Creatinine Ratio 34.2; Calcium 7.7 mg/dL (8.5-10.1); Potassium 3.5 mmol/L (3.5-5.1)
[2022-05-09 20:02] VITALS: BP 107/54
[2022-05-10] MEDS: ACCU-CHEK COMFORT CURVE STRIP VI SCH ×4 (00:21→17:30)
[2022-05-10] MEDS: InsuLIN REG 1unit/0.01ml Soln (100units/ml) SC SCH ×4 (00:28→17:30)
[2022-05-10] MEDS: SODIUM CHLORIDE 0.9% 1,000 ML IV SCH ×4 (00:29→17:25)
[2022-05-10] MEDS: PIPERACILLIN-TAZOB 3.375GM 100 ML IV SCH ×4 (00:29→18:28)
[2022-05-10 04:57] VITALS: BP 95/41
[2022-05-10 05:30] VITALS: BP 95/41
[2022-05-10] MEDS ORDERED: LORA-655 PO (05:53)
[2022-05-10 09:00] VITALS: BP 89/42
[2022-05-10] MEDS: ENOXAPARIN SOD 40 MG/0.4 ML SYRINGE SC SCH (09:18)
[2022-05-10 10:59] LABS: Basophils # (auto) 0.1 10 ^3/uL (0-0.2); Basophils % (auto) 0.3 % (0.0-2.0); Eosinophils # (auto) 0 10 ^3/uL (0-0.8); Eosinophils % (auto) 0.2 % (0.0-7.0); Lymphocytes # (auto) 0.9 10 ^3/uL (0.4-5.4); Mean Corpuscular Hemoglobin 29.4 pg (28.0-32.0); Mean Corpuscular Hgb Conc. 33.3 g/dL (32.0-36.0); Mean Corpuscular Volume 88.4 fL (80.0-100.0); Monocytes # (auto) 0.6 10 ^3/uL (0-1.3); Monocytes % (auto) 4.1 % (0.0-12.0); Neutrophils % (auto) 89.4 % (37.0-80.0); Nucleated Red Blood Cells % 0.1 %; Red Blood Cells 3.73 10^6/uL (4.5-5.90); Red Cell Distribution Width 14.6 % (11.8-14.3); White Blood Cell 15.7 10^3/uL (4.4-10.8)
[2022-05-10 11:14] LABS: Albumin 2.1 g/dL (3.4-5.0); Calcium 7.1 mg/dL (8.5-10.1); Potassium 3.1 mmol/L (3.5-5.1)
[2022-05-10 11:18] LABS: BUN/Creatinine Ratio 52.8; Bilirubin, Total 0.5 mg/dL (0.2-1.0); Total Protein 5.7 g/dL (6.4-8.2)
[2022-05-10 13:00] VITALS: BP 115/57
[2022-05-10] MEDS ORDERED: VANCOMYCIN PER PHARMACY 0 MG IV SCH (15:00)
[2022-05-10] MEDS: VANCOMYCIN 1GM/250ML 250 ML IV SCH (16:00)
[2022-05-10 17:00] VITALS: BP 153/57
[2022-05-10 22:00] VITALS: BP 113/47
[2022-05-11] MEDS: SODIUM CHLORIDE 0.9% 1,000 ML IV SCH ×3 (00:05→13:19)
[2022-05-11] MEDS: ACCU-CHEK COMFORT CURVE STRIP VI SCH ×4 (00:22→18:04)
[2022-05-11] MEDS: PIPERACILLIN-TAZOB 3.375GM 100 ML IV SCH ×5 (00:22→23:30)
[2022-05-11 05:00] VITALS: BP 120/50
[2022-05-11] MEDS: InsuLIN REG 1unit/0.01ml Soln (100units/ml) SC SCH ×4 (06:00→18:00)
[2022-05-11] MEDS: VANCOMYCIN 1GM/250ML 250 ML IV SCH (08:00)
[2022-05-11] MEDS: ENOXAPARIN SOD 40 MG/0.4 ML SYRINGE SC SCH (08:00)
[2022-05-11 09:00] VITALS: BP 105/54
[2022-05-11 09:05] LABS: Albumin 1.7 g/dL (3.4-5.0); Calcium 6.7 mg/dL (8.5-10.1); Potassium 3.6 mmol/L (3.5-5.1)
[2022-05-11 09:07] LABS: Basophils # (auto) 0.1 10 ^3/uL (0-0.2); Basophils % (auto) 0.4 % (0.0-2.0); Eosinophils # (auto) 0 10 ^3/uL (0-0.8); Eosinophils % (auto) 0.1 % (0.0-7.0); Hematocrit 28.1 % (41.0-53.0); Hemoglobin 9.6 g/dL (13.5-17.5); Lymphocytes # (auto) 0.7 10 ^3/uL (0.4-5.4); Mean Corpuscular Hemoglobin 29.7 pg (28.0-32.0); Mean Corpuscular Hgb Conc. 34.2 g/dL (32.0-36.0); Mean Corpuscular Volume 86.7 fL (80.0-100.0); Monocytes # (auto) 0.5 10 ^3/uL (0-1.3); Monocytes % (auto) 3.4 % (0.0-12.0); Neutrophils # (auto) 12.1 10 ^3/uL (1.6-8.6); Neutrophils % (auto) 91.1 % (37.0-80.0); Nucleated Red Blood Cells % 0.1 %; Red Blood Cells 3.24 10^6/uL (4.5-5.90); Red Cell Distribution Width 14.6 % (11.8-14.3); White Blood Cell 13.2 10^3/uL (4.4-10.8)
[2022-05-11 09:09] LABS: Bilirubin, Total 0.6 mg/dL (0.2-1.0)
[2022-05-11 09:26] LABS: BUN/Creatinine Ratio 45.5
[2022-05-11] MEDS ORDERED: GLYCOPYRROLATE 0.2 MG/ML 1ML VIAL IV ONE (09:30)
[2022-05-11] MEDS ORDERED: ALBUTEROL SULF 2.5 MG/0.5ML(0.5%) NEB SOLN NEB PRN (12:30)
[2022-05-11 13:00] VITALS: BP 113/39
[2022-05-11 17:00] VITALS: BP 158/41
[2022-05-11 22:00] VITALS: BP 105/44
[2022-05-11] MEDS: MUPIROCIN 2% OINT 15gm or 22gm FOR MRSA NARES EACHNOSTRI SCH (22:00)
[2022-05-12] MEDS: InsuLIN REG 1unit/0.01ml Soln (100units/ml) SC SCH ×4 (00:02→17:50)
[2022-05-12] MEDS: ACCU-CHEK COMFORT CURVE STRIP VI SCH ×4 (00:02→17:50)
[2022-05-12] MEDS: VANCOMYCIN 1GM/250ML 250 ML IV SCH ×2 (00:20→15:57)
[2022-05-12] MEDS: SODIUM CHLORIDE 0.9% 1,000 ML IV SCH (02:32)
[2022-05-12 05:00] VITALS: BP 96/39
[2022-05-12 05:08] LABS: Basophils # (auto) 0.1 10 ^3/uL (0-0.2); Basophils % (auto) 0.6 % (0.0-2.0); Eosinophils # (auto) 0.1 10 ^3/uL (0-0.8); Eosinophils % (auto) 0.7 % (0.0-7.0); Hematocrit 28.2 % (41.0-53.0); Hemoglobin 9.6 g/dL (13.5-17.5); Lymphocytes # (auto) 1.2 10 ^3/uL (0.4-5.4); Lymphocytes % (auto) 10.6 % (10.0-50.0); Mean Corpuscular Hgb Conc. 34.1 g/dL (32.0-36.0); Mean Corpuscular Volume 87.8 fL (80.0-100.0); Monocytes # (auto) 0.6 10 ^3/uL (0-1.3); Monocytes % (auto) 5.6 % (0.0-12.0); Neutrophils # (auto) 9.4 10 ^3/uL (1.6-8.6); Neutrophils % (auto) 82.5 % (37.0-80.0); Red Blood Cells 3.21 10^6/uL (4.5-5.90); Red Cell Distribution Width 14.5 % (11.8-14.3); White Blood Cell 11.4 10^3/uL (4.4-10.8)
[2022-05-12 05:25] LABS: Calcium 7.1 mg/dL (8.5-10.1); Magnesium 1.8 mg/dL (1.6-2.6)
[2022-05-12 05:26] LABS: BUN/Creatinine Ratio 45.8
[2022-05-12] MEDS: PIPERACILLIN-TAZOB 3.375GM 100 ML IV SCH ×3 (05:31→18:27)
[2022-05-12 05:57] LABS: Potassium 2.9 mmol/L (3.5-5.1)
[2022-05-12 09:00] VITALS: BP 114/40
[2022-05-12] MEDS: ENOXAPARIN SOD 40 MG/0.4 ML SYRINGE SC SCH (10:02)
[2022-05-12] MEDS: MUPIROCIN 2% OINT 15gm or 22gm FOR MRSA NARES EACHNOSTRI SCH (10:02)
[2022-05-12] MEDS ORDERED: POTASSIUM CHL 20MEQ/100ML 100 ML IV ONE (12:00)
[2022-05-12] MEDS ORDERED: MAGNESIUM SULFATE 1GM/100ML 100 ML IV ONE (12:00)
[2022-05-12 13:00] VITALS: BP 100/48
[2022-05-12 16:56] VITALS: BP 131/51
[2022-05-12 19:23] VITALS: BP 131/51
[2022-05-12 19:36] LABS: BUN/Creatinine Ratio 42.5; Calcium 7.3 mg/dL (8.5-10.1); Potassium 3.2 mmol/L (3.5-5.1)
[2022-05-12] MEDS ORDERED: AMOX500T86 PO (21:42)
[2022-05-13] MEDS ORDERED: VANCOMYCIN 1GM/250ML 250 ML IV SCH
== END 2022-05-12 19:50 | disposition hospice, home (50) | DRG 871 ==
LOC: EDUNIT# 12:14 → ER 12:14 → TELE 14:53 → TELE-WESTW 05-10 03:22
PROVIDERS: ADMIT Registered Nurse; ATTEND Internal Medicine
PROC: 5A09357 Assistance with Respiratory Ventilation, Less than 24 Consecutive Hours, Continuous Positive Airway Pressure (ICD-10-PCS; principal; 2022-05-09)
PROC: 5A09357 Assistance with Respiratory Ventilation, Less than 24 Consecutive Hours, Continuous Positive Airway Pressure (ICD-10-PCS; 2022-05-10)
DX: A41.89 Other specified sepsis (principal); G93.41 Metabolic encephalopathy; L89.153 Pressure ulcer of sacral region, stage 3; J96.01 Acute respiratory failure with hypoxia; J18.9 Pneumonia, unspecified organism; N39.0 Urinary tract infection, site not specified; G12.21 Amyotrophic lateral sclerosis; Z68.1 Body mass index [BMI] 19.9 or less, adult; Z88.8 Allergy status to other drugs, medicaments and biological substances; Z20.822 Contact with and (suspected) exposure to COVID-19; E11.9 Type 2 diabetes mellitus without complications; E78.5 Hyperlipidemia, unspecified; E87.5 Hyperkalemia; F02.80 Dementia in other diseases classified elsewhere, unspecified severity, without behavioral disturbance, psychotic disturbance, mood disturbance, and anxiety; G30.9 Alzheimer's disease, unspecified; I10 Essential (primary) hypertension; I69.30 Unspecified sequelae of cerebral infarction
CPT/HCPCS: 36415; 36600; 71045; 80048; 80053; 80202; 81001; 82140; 82805; 82962; 83605; 83735; 83880; 84484; 85025; 87040; 87077; 87081; 87086; 87186; 92610; 93005; 93306; 94640; 94660; 96365; 96375; 99291; G0378; J1815; J2543; J3480

== ENCOUNTER 2022-05-21 00:29 | Inpatient (IN) | payer OTHER ==
[~2022-05-21] VITALS: Ht 175.3 cm; Wt 67.0 kg
[~2022-05-21 00:29] MED LIST changes: +AMOX500T86 PO; -LEVO500T31 PO; +LORA-655 PO
[2022-05-21 03:50] LABS: Basophils # (auto) 0.1 10 ^3/uL (0-0.2); Basophils % (auto) 0.9 % (0.0-2.0); Eosinophils # (auto) 0.1 10 ^3/uL (0-0.8); Eosinophils % (auto) 1.4 % (0.0-7.0); Hematocrit 25.2 % (41.0-53.0); Hemoglobin 8.9 g/dL (13.5-17.5); Lymphocytes % (auto) 12.9 % (10.0-50.0); Mean Corpuscular Hemoglobin 30.6 pg (28.0-32.0); Mean Corpuscular Hgb Conc. 35.2 g/dL (32.0-36.0); Mean Corpuscular Volume 86.8 fL (80.0-100.0); Monocytes # (auto) 0.6 10 ^3/uL (0-1.3); Monocytes % (auto) 7.8 % (0.0-12.0); Neutrophils # (auto) 6.2 10 ^3/uL (1.6-8.6); Nucleated Red Blood Cells % 0.1 %; Red Cell Distribution Width 15.5 % (11.8-14.3)
[2022-05-21 04:08] LABS: Albumin 1.9 g/dL (3.4-5.0); Calcium 7.4 mg/dL (8.5-10.1); Potassium 4.2 mmol/L (3.5-5.1)
[2022-05-21 04:17] LABS: Bilirubin, Total 0.5 mg/dL (0.2-1.0); Total Protein 5.3 g/dL (6.4-8.2)
[2022-05-21 07:36] LABS: Urine Bacteria FEW /hpf (None Seen); Urine Blood TRACE /uL (Negative); Urine Mucus FEW (None Seen); Urine Specific Gravity 1.016 (1.001-1.035); Urine WBC 5 /hpf (0 - 3)
[2022-05-21] MEDS ORDERED: IOHEXOL 350 MG/ML 100ML IJ ONE (07:40)
[2022-05-21 08:46] LABS: Alcohol, Urine < 3.0 mg/dL (0-10); Amphetamine Screen, Urine NEGATIVE (NEGATIVE); Barbiturate Scree,Urine NEGATIVE (NEGATIVE); Benzodiazephine Screen, Urine NEGATIVE (NEGATIVE); Cannabinoid Screen, Urine NEGATIVE (NEGATIVE); Cocaine Screen, Urine NEGATIVE (NEGATIVE); Opiate Scree,Urine NEGATIVE (NEGATIVE); Phencyclidine Screen, Urine NEGATIVE (NEGATIVE)
[2022-05-21] MEDS ORDERED: MORPHINE SULFATE INJ 2 MG/ml SYRG IV PRN (10:45)
[2022-05-21] MEDS ORDERED: DEXTROSE (50%) 50ML SYRG IV PRN (10:45)
[2022-05-21] MEDS ORDERED: HYDROcodone-ACET 5/325MG TAB PO PRN (10:45)
[2022-05-21] MEDS ORDERED: ACETAMINOPHEN 325 MG TAB PO PRN (10:45)
[2022-05-21] MEDS: DOXYCYCLINE 100MG/250ML 250 ML IV SCH ×2 (11:40→23:54)
[2022-05-21] MEDS: ACCU-CHEK COMFORT CURVE STRIP VI SCH ×3 (12:00→22:00)
[2022-05-21] MEDS: InsuLIN REG 1unit/0.01ml Soln (100units/ml) SC SCH ×3 (12:00→22:00)
[2022-05-21 23:38] VITALS: BP 131/59
[2022-05-22] VITALS (8 sets, daily range): BP systolic 99–132; BP diastolic 48–71
[2022-05-22 06:06] LABS: BUN/Creatinine Ratio 22.6; Calcium 7.3 mg/dL (8.5-10.1); Potassium 3.9 mmol/L (3.5-5.1)
[2022-05-22 06:08] LABS: Bilirubin, Total 0.5 mg/dL (0.2-1.0); Total Protein 5.6 g/dL (6.4-8.2)
[2022-05-22 06:11] LABS: Basophils # (auto) 0.1 10 ^3/uL (0-0.2); Basophils % (auto) 0.6 % (0.0-2.0); Eosinophils # (auto) 0.2 10 ^3/uL (0-0.8); Eosinophils % (auto) 1.6 % (0.0-7.0); Hematocrit 25.1 % (41.0-53.0); Lymphocytes # (auto) 1.7 10 ^3/uL (0.4-5.4); Lymphocytes % (auto) 15.3 % (10.0-50.0); Mean Corpuscular Hemoglobin 31.4 pg (28.0-32.0); Mean Corpuscular Hgb Conc. 35.8 g/dL (32.0-36.0); Mean Corpuscular Volume 87.6 fL (80.0-100.0); Monocytes # (auto) 0.9 10 ^3/uL (0-1.3); Monocytes % (auto) 7.7 % (0.0-12.0); Neutrophils # (auto) 8.3 10 ^3/uL (1.6-8.6); Neutrophils % (auto) 74.8 % (37.0-80.0); Red Blood Cells 2.87 10^6/uL (4.5-5.90); Red Cell Distribution Width 15.1 % (11.8-14.3); White Blood Cell 11.1 10^3/uL (4.4-10.8)
[2022-05-22] MEDS: InsuLIN REG 1unit/0.01ml Soln (100units/ml) SC SCH ×4 (07:27→22:11)
[2022-05-22] MEDS: ACCU-CHEK COMFORT CURVE STRIP VI SCH ×4 (07:27→22:09)
[2022-05-22] MEDS: cefTRIAXone 1GM/50ML D5W 50 ML IV SCH (08:42)
[2022-05-22] MEDS: amLODIPine BESYLATE 5 MG TAB PO SCH (08:43)
[2022-05-22] MEDS: ENOXAPARIN SOD 40 MG/0.4 ML SYRINGE SC SCH (08:43)
[2022-05-22] MEDS ORDERED: AZITHROMYCIN 500MG/ 250ML 250 ML IV SCH (10:00)
[2022-05-22] MEDS: DOXYCYCLINE 100MG/250ML 250 ML IV SCH ×2 (10:50→22:19)
[2022-05-22] MEDS ORDERED: ALBUTEROL SULF 2.5 MG/0.5ML(0.5%) NEB SOLN NEB PRN (13:30)
[2022-05-22] MEDS ORDERED: IPRATROPIUM BROM 0.5 MG/2.5ML INH SOL NEB PRN (13:30)
[2022-05-22] MEDS: MUPIROCIN 2% OINT 15gm or 22gm FOR MRSA NARES EACHNOSTRI SCH (22:10)
[2022-05-23] MEDS ORDERED: POLYETHYLENE GLYCOL 17 GM PWDR PO PRN (02:00)
[2022-05-23 05:00] VITALS: BP 100/44
[2022-05-23] MEDS: ACCU-CHEK COMFORT CURVE STRIP VI SCH ×4 (06:15→22:37)
[2022-05-23] MEDS: InsuLIN REG 1unit/0.01ml Soln (100units/ml) SC SCH ×4 (06:17→22:39)
[2022-05-23 09:00] VITALS: BP 83/39
[2022-05-23] MEDS: DOCUSATE SOD 100 MG CAP PO SCH (09:43)
[2022-05-23] MEDS: ENOXAPARIN SOD 40 MG/0.4 ML SYRINGE SC SCH (09:43)
[2022-05-23] MEDS: cefTRIAXone 1GM/50ML D5W 50 ML IV SCH (09:43)
[2022-05-23] MEDS: amLODIPine BESYLATE 5 MG TAB PO SCH (09:44)
[2022-05-23] MEDS: MUPIROCIN 2% OINT 15gm or 22gm FOR MRSA NARES EACHNOSTRI SCH ×2 (09:59→22:41)
[2022-05-23] MEDS: DOXYCYCLINE 100MG/250ML 250 ML IV SCH ×2 (11:38→22:50)
[2022-05-23 13:00] VITALS: BP 99/37
[2022-05-23 17:00] VITALS: BP 97/43
[2022-05-23] MEDS ORDERED: MUPI2OIN2 EACHNOSTRI (21:42)
[2022-05-23] MEDS ORDERED: DOXY-332 PO (21:42)
[2022-05-23] MEDS ORDERED: SENN-83 PO (21:42)
[2022-05-23 22:00] VITALS: BP 100/51
[2022-05-23] MEDS ORDERED: SENNA 8.6 MG TAB PO SCH (22:00)
[2022-05-24] VITALS (7 sets, daily range): BP systolic 87–103; BP diastolic 42–70
[2022-05-24] MEDS: InsuLIN REG 1unit/0.01ml Soln (100units/ml) SC SCH ×2 (06:16→11:43)
[2022-05-24] MEDS: ACCU-CHEK COMFORT CURVE STRIP VI SCH ×2 (06:16→11:42)
[2022-05-24] MEDS: amLODIPine BESYLATE 5 MG TAB PO SCH (09:52)
[2022-05-24] MEDS: DOCUSATE SOD 100 MG CAP PO SCH (10:00)
[2022-05-24] MEDS: cefTRIAXone 1GM/50ML D5W 50 ML IV SCH (10:10)
[2022-05-24] MEDS: ENOXAPARIN SOD 40 MG/0.4 ML SYRINGE SC SCH (10:11)
[2022-05-24] MEDS: MUPIROCIN 2% OINT 15gm or 22gm FOR MRSA NARES EACHNOSTRI SCH (10:15)
[2022-05-24] MEDS: DOXYCYCLINE 100MG/250ML 250 ML IV SCH (11:30)
== END 2022-05-24 17:05 | disposition hospice, home (50) | DRG 193 ==
LOC: EDBD 00:29 → ER 00:29 → TELE 10:42 → TELE-EAST 21:27
PROVIDERS: ADMIT Internal Medicine; ATTEND Internal Medicine
DX: J18.9 Pneumonia, unspecified organism (principal); J96.21 Acute and chronic respiratory failure with hypoxia; E87.1 Hypo-osmolality and hyponatremia; J90 Pleural effusion, not elsewhere classified; J98.11 Atelectasis; J44.0 Chronic obstructive pulmonary disease with (acute) lower respiratory infection; Z20.822 Contact with and (suspected) exposure to COVID-19; D64.9 Anemia, unspecified; E11.9 Type 2 diabetes mellitus without complications; E78.5 Hyperlipidemia, unspecified; E88.09 Other disorders of plasma-protein metabolism, not elsewhere classified; F03.90 Unspecified dementia, unspecified severity, without behavioral disturbance, psychotic disturbance, mood disturbance, and anxiety; I10 Essential (primary) hypertension; K59.00 Constipation, unspecified; Z51.5 Encounter for palliative care; Z86.73 Personal history of transient ischemic attack (TIA), and cerebral infarction without residual deficits; Z88.8 Allergy status to other drugs, medicaments and biological substances
CPT/HCPCS: 36415; 71045; 71275; 74177; 80053; 80307; 81001; 82962; 83605; 84484; 85025; 87081; 93005; 96365; 96367; 96372; 97163; G0378; J0696; J1815; J3490